=== PATIENT | male | born 1980 | race Caucasian/White ===

== ENCOUNTER 2017-09-06 14:08 | Emergency (ER) | payer OTHER ==
[~2017-09-06] VITALS: Ht 182.9 cm; Wt 88.5 kg
[~2017-09-06 14:08] MED LIST: ALBU90OI INH; Ativan0.5 MG PO; Ativan1 MG PO; BUPR75 PO; Bactrim Ds Tab1 EACH PO; CLIN150 PO; CLIN300; CLON.1 PO; CYCL10 PO; Clindamycin HC300 MG PO; Cyclobenzaprine5 MG PO; Desyrel50 MG PO; ERYT.5TO OS; Guanfacine HCl2 MG PO; HYDACE5325 PO; HYDHCL25 PO; HYDPAM50 PO; LORA.5; LORA.5 PO; METH40 PO; METHADONE; Naprosyn500 MG PO; OXYACE5T PO; PROM25 PO; PSYL5.85P PO; Percocet 5-3251 EACH PO; Pseudoephedrine30 MG PO; RXANTBENOT RIGHTEAR; SULTRIDS; SULTRIDS PO; Vicoprofen 2001 EACH PO
[2017-09-06] MEDS ORDERED: Tylenol325 MG PO ×2 (15:53→16:06)
== END 2017-09-06 16:08 | disposition home or self-care (01) ==
LOC: ER 14:08
DX: J06.9 Acute upper respiratory infection, unspecified (principal); Z79.899 Other long term (current) drug therapy; F17.200 Nicotine dependence, unspecified, uncomplicated
CPT/HCPCS: 87081; 87430; 99283

== ENCOUNTER → 2017-12-26 | Outpatient (CLI) | payer OTHER ==
[~2017-12-26] MED LIST changes: +Tylenol325 MG PO
[2017-12-26 19:23] LABS: U Amphetamine Screen DETECTED; U Barbituate Screen Not Detected; U Benzodiazapine Screen DETECTED; U Buprenorphine Screen Not Detected; U Cannabinoids Screen Not Detected; U Cocaine Screen Not Detected; U Methadone Screen DETECTED; U Methamphetamine Screen Not Detected; U Opiates Screen Not Detected; U Oxycodone Screen Not Detected; U Phencyclidine Screen Not Detected; U Propoxyphene Screen Not Detected
== END ==
LOC: OLS 17:21 → LAB SHORT 17:21
PROVIDERS: Psychiatry & Neurology Psychiatry
DX: Z51.81 Encounter for therapeutic drug level monitoring (principal); Z79.899 Other long term (current) drug therapy

== ENCOUNTER → 2019-03-30 | Outpatient (CLI) | payer OTHER ==
[2019-03-30 13:57] LABS: Source, Urine Clean Catch
[2019-03-30 14:32] LABS: BASOPHILS ABSOLUTE AUTO 0.07 K/mm3 (0.00-0.23); BASOPHILS PERCENT AUTO 1 % (0-2); EOSINOPHILS ABSOLUTE AUTO 0.14 K/mm3 (0.00-0.68); EOSINOPHILS PERCENT AUTO 1 % (0-6); Hematocrit 47.6 % (37.0-53.0); Hemoglobin 15.9 g/dL (13.5-17.5); IMMATURE GRAN ABSOLUTE AUTO 0.04 K/mm3 (0.00-0.10); IMMATURE GRAN PERCENT AUTO 0 % (0-1); LYMPHOCYTES ABSOLUTE AUTO 1.78 K/mm3 (0.84-5.20); LYMPHOCYTES PERCENT AUTO 16 % (21-46); MONOCYTES ABSOLUTE AUTO 1.58 K/mm3 (0.16-1.47); MONOCYTES PERCENT AUTO 14 % (4-13); Mean Corpuscular HGB 31.6 pg (26.0-34.0); Mean Corpuscular HGB Conc 33.4 g/dL (31.5-36.5); Mean Corpuscular Volume 95 fL (80-100); Mean Platelet Volume 10.7 fL (9.1-12.4); NEUTROPHILS ABSOLUTE AUTO 7.78 K/mm3 (1.96-9.15); NEUTROPHILS PERCENT AUTO 68 % (41-73); Platelet Count 338 K/mm3 (150-400); RDW Coefficient Variation 13.4 % (11.7-14.2); RDW Standard Deviation 46.9 fL (35.1-46.3); Red Blood Cell Count 5.03 M/mm3 (4.30-5.90); White Blood Cell Count 11.39 K/mm3 (4.00-11.30)
[2019-03-30 14:41] LABS: Bacteria Mod /hpf; Squamous Epithelial Cells Few /hpf (Few); White Blood Cells, Urine 25-50 /hpf (0-5)
[2019-03-30 14:42] LABS: Alanine Aminotransfer (ALT/SGP 19 U/L (12-78); Albumin, Blood 3.8 g/dL (3.4-5.0); Albumin/Globulin Ratio 1.1 (0.8-1.8); Alk Phos 112 U/L (40-126); Anion Gap 9 mmol/L (6-16); Aspartate Aminotrans (AST/SGOT 22 U/L (12-37); Bilirubin, Total 0.4 mg/dL (0.1-1.0); Blood Urea Nitrogen 12 mg/dL (8-24); Bun/Creatinine Ratio 11.4 (12.0-20.0); CO2, Blood 26 mmol/L (21-32); Calcium, Blood 9.9 mg/dL (8.5-10.1); Chloride, Blood 102 mmol/L (98-108); Creatinine, Blood 1.05 mg/dL (0.60-1.20); Globulin, Blood 3.5 g/dL (2.2-4.0); Glomerular Filtration Rate >60 (60-); Glucose, Blood 120 mg/dL (70-99); Potassium, Blood 4.2 mmol/L (3.5-5.5); Sodium, Blood 137 mmol/L (136-145); Total Protein, Blood 7.3 g/dL (6.4-8.2)
[2019-04-01 07:07] LABS: HIV SCREEN 4TH GENERATION WRFX Non Reactive (Non Reactive)
[2019-04-01 08:07] LABS: HBSAG SCREEN Negative (Negative); HEP A AB, IGM Negative (Negative); HEP B CORE AB, IGM Negative (Negative); HEP C VIRUS AB <0.1 (0.0-0.9)
[2019-04-03 08:08] LABS: CHLAMYDIA BY NAA Positive (Negative); GONOCOCCUS BY NAA Positive (Negative); TRICH VAG BY NAA Negative (Negative)
== END | disposition home or self-care (01) ==
LOC: LAB SHORT 13:55 → LAB EV 13:55
PROVIDERS: General Practice
DX: E29.1 Testicular hypofunction (principal); J02.9 Acute pharyngitis, unspecified; Z72.51 High risk heterosexual behavior
CPT/HCPCS: 80053; 80074; 81015; 85025; 86592; 87081; 87086; 87147; 87389; 87491; 87591; 87661

== ENCOUNTER 2019-07-13 17:46 | Emergency (ER) | payer OTHER ==
[~2019-07-13] VITALS: Ht 182.9 cm; Wt 93.0 kg
[2019-07-13] MEDS ORDERED: BENZ100A PO (18:47)
== END 2019-07-13 18:54 | disposition home or self-care (01) ==
LOC: ER 17:46
DX: J02.9 Acute pharyngitis, unspecified (principal); F17.210 Nicotine dependence, cigarettes, uncomplicated; Z79.899 Other long term (current) drug therapy; Z79.891 Long term (current) use of opiate analgesic
CPT/HCPCS: 87081; 87430; 99283; J1100

== ENCOUNTER 2020-05-04 01:58 | Emergency (ER) | payer OTHER ==
[~2020-05-04] VITALS: Ht 182.9 cm; Wt 86.2 kg
[~2020-05-04 01:58] MED LIST changes: +BENZ100A PO
[2020-05-04] MEDS ORDERED: SILDENAFIL CIT100 MG PO (02:23)
[2020-05-04] MEDS ORDERED: METHADONE PO (02:24)
[2020-05-04] MEDS ORDERED: Depo-Testos200 MG/ML (02:24)
[2020-05-04] MEDS ORDERED: TAMSULOSIN HCL0.4 M1 PO (02:24)
[2020-05-04] MEDS ORDERED: EUTHYROX100 MC1 PO (02:25)
== END 2020-05-04 03:40 | disposition home or self-care (01) ==
LOC: ER 01:58
DX: G89.29 Other chronic pain (principal); R10.9 Unspecified abdominal pain; F15.10 Other stimulant abuse, uncomplicated; F17.210 Nicotine dependence, cigarettes, uncomplicated; Z79.899 Other long term (current) drug therapy
CPT/HCPCS: 99283

== ENCOUNTER 2021-02-12 01:02 | Emergency (ER) | payer OTHER ==
[~2021-02-12] VITALS: Ht 182.9 cm; Wt 81.7 kg
[~2021-02-12 01:02] MED LIST changes: +Depo-Testos200 MG/ML; +EUTHYROX100 MC1 PO; +METHADONE PO; +SILDENAFIL CIT100 MG PO; +TAMSULOSIN HCL0.4 M1 PO
== END 2021-02-12 01:50 | disposition left against medical advice (07) ==
LOC: ER 01:02
DX: Z53.21 Procedure and treatment not carried out due to patient leaving prior to being seen by health care provider (principal)